=== PATIENT | male | born 1995 | race Two or more races ===

== ENCOUNTER 2025-08-22 22:11 | Emergency (ER) | payer OTHER ==
[~2025-08-22] VITALS: Ht 180.3 cm; Wt 78.0 kg
[2025-08-22] MEDS ORDERED: ORPHENADRINE CITRATE 30 MG/ML AMPUL IM ONE (23:30)
[2025-08-22] MEDS ORDERED: KETOROLAC TROMETHAMINE 60 MG VIAL IM ONE (23:30)
[2025-08-22] MEDS ORDERED: DEXAMETHASONE SODIUM PHOSPHATE 4 MG/ML VIAL IM ONE (23:30)
[2025-08-23] MEDS ORDERED: DEXAMETHASONE SODIUM PHOSPHATE 4 MG/ML VIAL ONE (00:05)
[2025-08-23] MEDS ORDERED: ORPHENADRINE CITRATE 30 MG/ML AMPUL ONE (00:05)
[2025-08-23] MEDS ORDERED: KETOROLAC TROMETHAMINE 60 MG VIAL IM ONE (00:05)
[2025-08-23] MEDS ORDERED: IBU800 MG PO (01:40)
[2025-08-23] MEDS ORDERED: MEDROLPACK PO (01:40)
[2025-08-23] MEDS ORDERED: NORFLEX100MG PO (01:40)
== END 2025-08-23 01:50 | disposition home or self-care (01) ==
LOC: ER 22:12
DX: M62.838 Other muscle spasm (principal); R07.89 Other chest pain; Y93.67 Activity, basketball; M94.0 Chondrocostal junction syndrome [Tietze]